=== PATIENT | female | born 1995 | race African-American/Black ===

== ENCOUNTER 2022-09-14 17:35 | Inpatient (IN) | payer MEDICAID ==
[~2022-09-14] VITALS: Ht 157.5 cm; Wt 46.3 kg
[2022-09-14] MEDS ORDERED: MORPHINE SULFATE 4 MG/ML CPJ (NOT FOR IM USE) IV STA ×2 (18:29→21:34)
[2022-09-14] MEDS ORDERED: ONDANSETRON HCL 4MG/2ML INJ IV STA ×2 (18:29→21:34)
[2022-09-14] MEDS ORDERED: SODIUM CHLORIDE 0.9% 1,000 ML IV ONE (18:30)
[2022-09-14 19:10] LABS: CHLORIDE 104 mEq/L (98-107)
[2022-09-14 19:28] LABS: BASOPHILS % 0.8 % (0.0-2.0); EOSINOPHILS % 0.6 % (0.0-5.0); HEMATOCRIT. 36.4 % (36.0-48.0); HEMOGLOBIN. 12.1 g/dL (12.0-16.0); LYMPHOCYTES % 14.8 % (20.0-50.0); MEAN CORPUSCULAR HEMOGLOBIN 27.7 pg (28.0-32.0); MEAN CORPUSCULAR VOLUME 83.8 fL (81.0-99.0); MEAN PLATELET VOLUME 9.8 fl (7.4-10.4); MONOCYTES % 13.2 % (2.0-8.0); NEUTROPHILS % 70.6 % (40.0-76.0); PLATELET 214 x1000/uL (130-400); RED BLOOD CELL COUNT 4.35 mill/uL (4.2-5.4); RED CELL DISTRIBUTION WIDTH 15.3 % (11.6-14.6)
[2022-09-14 19:38] LABS: HCG SCREEN POSITIVE
[2022-09-14 19:41] LABS: B-HCG QUANTITATIVE 24446 mIU/mL (<3)
[2022-09-14] MEDS ORDERED: PROPOFOL 200MG/20ML VIAL IV ONE (21:53)
[2022-09-14] MEDS ORDERED: LIDOCAINE HCL 1% 10 MG/ML 10ML VIAL ONE (21:53)
[2022-09-14] MEDS ORDERED: MIDAZOLAM HCL 2 MG/2 ML VIAL ONE (21:54)
[2022-09-14] MEDS ORDERED: FENTANYL CITRATE/PF 50MCG/ML 2ML VIAL ONE (21:54)
[2022-09-14] MEDS ORDERED: PHENYLEPHRINE HCL 10 MG/ML 1ML (IV VIAL) IV ONE (21:55)
[2022-09-14] MEDS ORDERED: EPHEDRINE SULFATE 50MG/ML VIAL ONE (21:55)
[2022-09-14] MEDS ORDERED: ROCURONIUM BROMIDE 10MG/ML VIAL 5ML IV ONE (21:56)
[2022-09-14] MEDS ORDERED: DEXAMETHASONE 4MG/ML 1ML VIAL ONE ×2 (21:56)
[2022-09-14] MEDS ORDERED: ONDANSETRON HCL 4MG/2ML INJ ONE ×2 (21:56→23:16)
[2022-09-14] MEDS ORDERED: SUCCINYLCHOLINE CHLORIDE 200MG/10ML IV ONE (21:56)
[2022-09-14] MEDS ORDERED: HYDROMORPHONE HCL/PF 2MG/ML CPJ IV PRN (22:30)
[2022-09-14] MEDS ORDERED: ONDANSETRON HCL 4MG/2ML INJ IV PRN ×3 (22:30→23:45)
[2022-09-14] MEDS ORDERED: CEFAZOLIN SODIUM 1000MG/VIAL ONE ×2 (23:08)
[2022-09-14] MEDS ORDERED: GLYCOPYRROLATE 0.2 MG/ML 2ML VIAL ONE ×2 (23:18→23:20)
[2022-09-14] MEDS ORDERED: NEOSTIGMINE METHYLSULFATE 1MG/ML 10 ML VIAL ONE (23:18)
[2022-09-14] MEDS ORDERED: KETOROLAC 30MG/ML VIAL ONE (23:26)
[2022-09-14] MEDS ORDERED: IBUPROFEN 400MG TABLET PO PRN (23:45)
[2022-09-14] MEDS ORDERED: IBUPROFEN 800MG TABLET PO PRN (23:45)
[2022-09-14] MEDS ORDERED: DIPHENHYDRAMINE 25MG CAPSULE PO PRN (23:45)
[2022-09-15] MEDS: METRONIDAZOLE 500 MG PREMIX 100 ML IV SCH ×2 (01:00→07:45)
[2022-09-15 03:00] VITALS: BP 116/68
[2022-09-15 04:00] VITALS: BP 105/63
[2022-09-15 08:00] VITALS: BP 108/75
[2022-09-15] MEDS: FAMOTIDINE 20MG/2ML VIAL IV SCH ×2 (09:00→20:34)
[2022-09-15 11:49] LABS: BASOPHILS % 0.1 % (0.0-2.0); HEMATOCRIT. 31.8 % (36.0-48.0); HEMOGLOBIN. 10.7 g/dL (12.0-16.0); LYMPHOCYTES % 7.9 % (20.0-50.0); MEAN CORPUSCULAR HEMOGLOBIN 28.3 pg (28.0-32.0); MEAN CORPUSCULAR VOLUME 83.9 fL (81.0-99.0); MEAN PLATELET VOLUME 9.4 fl (7.4-10.4); MONOCYTES % 4.7 % (2.0-8.0); NEUTROPHILS % 87.3 % (40.0-76.0); PLATELET 171 x1000/uL (130-400); RED BLOOD CELL COUNT 3.78 mill/uL (4.2-5.4); RED CELL DISTRIBUTION WIDTH 15.2 % (11.6-14.6)
[2022-09-15 11:52] VITALS: BP 112/52
[2022-09-15 12:07] LABS: CHLORIDE 108 mEq/L (98-107)
[2022-09-15 16:00] VITALS: BP 118/62
[2022-09-15 20:00] VITALS: BP 109/72
[2022-09-15] MEDS ORDERED: NALOXONE HCL 0.4MG/ML VIAL IV PRN (20:00)
[2022-09-15] MEDS: HYDROCODONE/ACETAMINOPHEN 5/325MG TABLET PO PRN (20:45)
[2022-09-16 08:00] VITALS: BP 101/67
[2022-09-16] MEDS ORDERED: FAMOTIDINE 20MG TABLET PO SCH (11:00)
[2022-09-16] MEDS: HYDROCODONE/ACETAMINOPHEN 5/325MG TABLET PO PRN (11:12)
[2022-09-16 11:25] VITALS: BP 101/67
[2022-09-16 12:00] VITALS: BP 112/72
== END 2022-09-16 12:00 | disposition home or self-care (01) | DRG 547 ==
LOC: ER 17:57 → 6EST 09-15 03:05
PROVIDERS: ADMIT Specialist; ATTEND Specialist
PROC: 0UB64ZZ Excision of Left Fallopian Tube, Percutaneous Endoscopic Approach (ICD-10-PCS; principal; 2022-09-15)
DX: O00.102 Left tubal pregnancy without intrauterine pregnancy (principal); F12.10 Cannabis abuse, uncomplicated; Z20.822 Contact with and (suspected) exposure to COVID-19
CPT/HCPCS: 36415; 76801; 80048; 80053; 84702; 84703; 85025; 86850; 86900; 87426; 88302; 99285; C9803; J0330; J0690; J1100; J1170; J1885; J2250; J2270; J2370; J2405; J2704; J2710; J3010; J3490; J7030